=== PATIENT | male | born 1960 | race Caucasian/White ===

== ENCOUNTER 2018-03-08 23:40 | Emergency (ER) | payer MEDICAID ==
[~2018-03-08] VITALS: Ht 167.6 cm; Wt 99.8 kg
[2018-03-08 23:55] VITALS: BP 139/91
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
--- NOTE | 2018-03-09 | NUR ---
PT AMBULATED TO BED 12 WITH VSS.
--- NOTE | 2018-03-09 00:03 | NUR ---
PATIENT PRESENTS TO ED WITH BILATERAL KNEE PAIN X1 DAY. PATIENT STATES HE WAS WALKING FROM [place] WHEN THE PAIN STARTED. PATIENT STATES PAIN 5/10 AT THIS TIME. NO SWELLING, REDNESS, OR SKIN TEARS NOTED AT THIS TIME. SKIN PINK WARM DRY AND INTACT. PATIENT STATES HE AD 3 BEERS BEFORE WALKING. PATIENT AWAKE AND ALERT AT THIS TIME WITH NO OBVIOUS DISTRESS. ER MD MADE AWARE OF PATIENT STATUS. WILL CONTINUE TO MONITOR.
[2018-03-09 02:11] VITALS: BP 125/81
--- NOTE | 2018-03-09 02:11 | NUR ---
Patient discharged with v/s stable. Written and verbal after care instructions given and explained. Patient alert, oriented and verbalized understanding of instructions. Ambulatory with steady gait. All questions addressed prior to discharge. ID band removed. Patient advised to follow up with PMD. Rx of TRAMADOL, IBUPROFEN, PEPCID given. Patient educated on indication of medication including possible reaction and side effects. Opportunity to ask questions provided and answered.
== END 2018-03-09 02:11 | disposition home or self-care (01) ==
LOC: MED 23:40
DX: M17.11 Unilateral primary osteoarthritis, right knee (principal); M25.562 Pain in left knee; F10.129 Alcohol abuse with intoxication, unspecified
CPT/HCPCS: 99283

== ENCOUNTER 2018-07-08 20:41 | Emergency (ER) | payer MEDICAID ==
[~2018-07-08] VITALS: Ht 167.6 cm; Wt 109.8 kg
[2018-07-08 20:41] VITALS: BP 130/81
--- NOTE | 2018-07-08 21:16 | NUR ---
Patient transferred to bed 8. RN evaluating patient at bedside.
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
--- NOTE | 2018-07-08 21:16 | NUR ---
[place] [facility] AT BEDSIDE
[2018-07-08 21:48] LABS: BASOPHILS # (AUTO) 0.1 K/uL (0.00-0.22); BASOPHILS % (AUTO) 0.8 % (0.0-2.0); EOSINOPHILS # (AUTO) 0.1 K/uL (0-0.4); EOSINOPHILS % (AUTO) 0.6 % (0.0-4.0); HEMATOCRIT 38.6 % (36-52); HEMOGLOBIN 12.6 g/dL (12.0-18.0); LYMPHOCYTES # (AUTO) 3.8 K/uL (2.0-11.5); LYMPHOCYTES % (AUTO) 40.3 % (20.5-51.1); MEAN CORPUSCULAR HEMOGLOBIN 30 pg (27-31); MEAN CORPUSCULAR HGB CONC 33 g/dL (33-37); MEAN CORPUSCULAR VOLUME 90.2 fL (80-94); MONOCYTES # (AUTO) 0.5 K/uL (0.8-1.0); NEUTROPHILS # (AUTO) 5.1 K/uL (1.8-7.7); NEUTROPHILS % (AUTO) 53.3 % (42.2-75.2); PLATELET COUNT (AUTO) 171 K/uL (140-450); RED BLOOD CELL COUNT(AUTO) 4.28 MIL/uL (4.20-6.10); WHITE BLOOD COUNT (AUTO) 9.5 K/uL (4.8-10.8)
[2018-07-08 22:10] LABS: ANION GAP 20.8 (8-16); CREATININE 0.8 mg/dL (0.7-1.3); POTASSIUM 3.8 mmol/L (3.5-5.1)
[2018-07-08 22:28] LABS: ALBUMIN 3.7 g/dL (3.4-5.0)
[2018-07-08 22:35] LABS: CREATINE KINASE MB 1.4 ng/mL (0-3.6)
--- NOTE | 2018-07-08 23:00 | NUR ---
PT LYING ON BED COMFORTABLY, GCS 15, AOX4, VSS.
--- NOTE | 2018-07-09 01:00 | NUR ---
PT RESTING ON BRUCE, SHANNAN. GCS 15, AOX4.
--- NOTE | 2018-07-09 03:00 | NUR ---
PT RESTING ON BRUCE, SAHNNAN. GCS 15, AOX4.
[2018-07-09 04:47] VITALS: BP 128/72
--- NOTE | 2018-07-09 04:47 | NUR ---
Patient presented to facility under the influence of Alcohol. Patient is currently ambulatory with steady gait, able to walk unassisted. Positive gag reflex. Alert and oriented. Is not driving self for discharge out of facility.Patient discharged with v/s stable. Written and verbal after care instructions given and explained. Patient verbalized understanding. Ambulatory with steady gait. All questions addressed prior to discharge. Advised to follow up with PMD. IV removed, catheter intact and site benign. Applied folded 4x4 gauze and tape to stop bleeding.
== END 2018-07-09 04:47 | disposition home or self-care (01) ==
LOC: MED 20:41
DX: S01.81XA Laceration without foreign body of other part of head, initial encounter (principal); S05.12XA Contusion of eyeball and orbital tissues, left eye, initial encounter; F10.129 Alcohol abuse with intoxication, unspecified; R94.31 Abnormal electrocardiogram [ECG] [EKG]; Y04.8XXA Assault by other bodily force, initial encounter; Y93.89 Activity, other specified; Y92.89 Other specified places as the place of occurrence of the external cause; Y99.8 Other external cause status
CPT/HCPCS: 36415; 70450; 71045; 71250; 72125; 74176; 80053; 82550; 82553; 83880; 84484; 85025; 93005; 99284; G0482

== ENCOUNTER 2019-12-20 01:04 | Emergency (ER) | payer MEDICAID ==
[~2019-12-20] VITALS: Ht 167.6 cm; Wt 113.4 kg
--- NOTE | 2019-12-20 01:08 | NUR ---
Dr. Dumont examining patient.
[2019-12-20 01:15] VITALS: BP 154/94
--- NOTE | 2019-12-20 01:18 | NUR ---
PT [facility]AN BLS. TAKEN TO BED 2
[2019-12-20] MEDS ORDERED: KETOROLAC 30 MG/ML VIAL IVP ONE (01:20)
--- NOTE | 2019-12-20 01:25 | NUR ---
LAB AT BEDSIDE
[2019-12-20 01:39] LABS: BASOPHILS # (AUTO) 0.1 K/uL (0.00-0.22); BASOPHILS % (AUTO) 0.8 % (0.0-2.0); EOSINOPHILS % (AUTO) 0.1 % (0.0-4.0); HEMATOCRIT 38.8 % (36-52); HEMOGLOBIN 12.8 g/dL (12.0-18.0); LYMPHOCYTES # (AUTO) 5.4 K/uL (2.0-11.5); LYMPHOCYTES % (AUTO) 57.7 % (20.5-51.1); MEAN CORPUSCULAR HEMOGLOBIN 28 pg (27-31); MEAN CORPUSCULAR HGB CONC 33 g/dL (33-37); MEAN CORPUSCULAR VOLUME 85.4 fL (80-94); MONOCYTES # (AUTO) 0.4 K/uL (0.8-1.0); MONOCYTES % (AUTO) 4.3 % (1.7-9.3); NEUTROPHILS # (AUTO) 3.5 K/uL (1.8-7.7); NEUTROPHILS % (AUTO) 37.1 % (42.2-75.2); PLATELET COUNT (AUTO) 267 K/uL (140-450); RED BLOOD CELL COUNT(AUTO) 4.54 MIL/uL (4.20-6.10); RED CELL DISTRIBUTION WIDTH 15.8 % (11.6-13.7); WHITE BLOOD COUNT (AUTO) 9.4 K/uL (4.8-10.8)
[2019-12-20 01:54] LABS: ALBUMIN 3.6 g/dL (3.4-5.0); ANION GAP 15.2 (8-16); CARBON DIOXIDE 24.9 mmol/L (21-32); POTASSIUM 4.1 mmol/L (3.5-5.1); TOTAL BILIRUBIN 0.4 mg/dL (0.0-1.0)
--- NOTE | 2019-12-20 01:54 | NUR ---
PT C/O LEFT LOWER LEG PAIN X 3 DAYS. DENIES ANY INJURY TO LEG, STATES AREA JUST STARTED HURTING AND HE NOTICED THE AREA WITH SOME DRAINAGE. LEG IS SWOLLEN AND TENDER TO TOUCH. +3 PEDAL PULSE, PT ABLE TO MOVE FOOT AND TOES, ABLE TO AMBULATE ON LEG. NO N/V, PT AFEBRILE. BED IN LOWEST POSITION AND SIDERAIL UP X 1. NKA DENIES MED HX DENIES MEDS
[2019-12-20 01:59] LABS: PROTHROMBIN TIME 10.8 secs (10.8-13.4)
--- NOTE | 2019-12-20 02:26 | NUR ---
Ultrasound at bedside.
--- NOTE | 2019-12-20 02:33 | NUR ---
ULTRASOUND AT BEDSIDE
[2019-12-20] MEDS ORDERED: MORPHINE SULFATE 4 MG/ML SYR IVP ONE (02:35)
[2019-12-20] MEDS ORDERED: ONDANSETRON 4 MG/2 ML VIAL IVP ONE (02:35)
[2019-12-20] MEDS ORDERED: CEPHALEXIN 500 MG CAP PO ONE (03:55)
--- NOTE | 2019-12-20 04:01 | NUR ---
CALLED PT SISTER IN LAW FOR [facility], PT PENDING D/C
--- NOTE | 2019-12-20 04:44 | NUR ---
PT RESTING QUITELY. STILL NOT ABLE TO GET IN CONTACT WITH PT'S FAMILY. WILL CALL AGAIN AT [phone]
--- NOTE | 2019-12-20 05:17 | NUR ---
PT UP AND AMBULATED DOWN THE CLARK WITHOUT ASSISTANCE, STEADY GAIT NOTED. PT ATTEMPTED TO CALL FAMILY BUT NO ONE ANSWERED. WILL CONTINUE TO MONITOR PT
[2019-12-20 05:43] VITALS: BP 110/46
--- NOTE | 2019-12-20 05:43 | NUR ---
Patient discharged with v/s stable. Written and verbal after care instructions given and explained. Patient alert, oriented and verbalized understanding of instructions. Ambulatory with steady gait. All questions addressed prior to discharge. ID band removed. Patient advised to follow up with PMD. Rx of KEFLEX, BACTRIM DS, MOTRIN, AND TYLENOL given. Patient educated on indication of medication including possible reaction and side effects. Opportunity to ask questions provided and answered.
--- NOTE | 2019-12-20 05:47 | NUR ---
PT STILL UNABLE TO REACH FAMILY MEMBER FOR [facility], UNABLE TO PROVIDE PT WITH TAXI VOUCHER DUE TO DISTANCE. SUPPLIED PT WITH BUS PASS, HE SAID HE WILL WAIT IN THE LOBBY FOR SOMEONE TO PICK HIM UP.
== END 2019-12-20 05:43 | disposition home or self-care (01) ==
LOC: MED 01:04
DX: R60.9 Edema, unspecified (principal); L03.90 Cellulitis, unspecified; M79.662 Pain in left lower leg; Z72.89 Other problems related to lifestyle
CPT/HCPCS: 36415; 71045; 73590; 80053; 83880; 84484; 85025; 85379; 85610; 85730; 93005; 93971; 96374; 96375; 99285; G0482; J1885; J2270; J2405; Q0092

== ENCOUNTER 2024-03-04 13:10 | Emergency (ER) | payer MEDICAID ==
[~2024-03-04] VITALS: Ht 162.6 cm; Wt 115.2 kg
[2024-03-04 13:16] VITALS: BP 136/81; PULSE 110; RESP 18; TEMP 98.8; O2SAT 99
[2024-03-04 13:48] VITALS: O2SAT 99
[2024-03-04] MEDS ORDERED: CEPH-588 PO (14:12)
[2024-03-04] MEDS ORDERED: BACI-418 TP (14:12)
[2024-03-04] MEDS: BACITRACIN OINT 500 UNITS/GM PKT TP ONE (14:20)
== END 2024-03-04 14:57 | disposition home or self-care (01) ==
LOC: MED 13:10
DX: L08.9 Local infection of the skin and subcutaneous tissue, unspecified (principal); Z79.2 Long term (current) use of antibiotics; Z79.899 Other long term (current) drug therapy
CPT/HCPCS: 99283

== ENCOUNTER 2024-03-13 16:45 | Emergency (ER) | payer MEDICAID ==
[~2024-03-13] VITALS: Ht 160 cm; Wt 114.3 kg
[~2024-03-13 16:45] MED LIST: BACI-418 TP; CEPH-588 PO
[2024-03-13 17:04] VITALS: BP 163/91; PULSE 79; RESP 18; TEMP 97.8; O2SAT 97
[2024-03-13] MEDS: IBUPROFEN 600 MG TAB PO ONE (19:36)
[2024-03-13] MEDS ORDERED: HYDR-5080 PO (21:34)
== END 2024-03-13 21:40 | disposition home or self-care (01) ==
LOC: MED 16:45
DX: S62.617A Displaced fracture of proximal phalanx of left little finger, initial encounter for closed fracture (principal); Z98.890 Other specified postprocedural states; Z79.899 Other long term (current) drug therapy; W18.39XA Other fall on same level, initial encounter; Y92.89 Other specified places as the place of occurrence of the external cause; Y93.89 Activity, other specified; Y99.8 Other external cause status
CPT/HCPCS: 73130; 99283